=== PATIENT | female | born 1995 | race Caucasian/White ===

== ENCOUNTER 2022-03-09 07:54 | Inpatient (IN) ==
[2022-03-09] MEDS ORDERED: Promethazine INJ(RESTRICTED) 25 MG/ML 1 ml VIAL IV PRN (09:53)
[2022-03-09] MEDS ORDERED: Nalbuphine 10 MG/ML 1 ML VIAL IV PRN (09:53)
[2022-03-09] MEDS ORDERED: Buffered Lidocaine 1% SYRIN 1 ml INTRADERM ONE ×2 (09:53→09:56)
[2022-03-09] MEDS ORDERED: Lactated Ringers 1000 ml BAG 1,000 ML IV SCH ×2 (10:00→19:00)
[2022-03-09] MEDS ORDERED: Oxytocin in LR 20,000 MILLI.UNIT/1,000 ML BAG IV SCH (10:00)
[2022-03-09 10:26] LABS: ABS Basophils 0.1 10^3/ul (0-0.2); ABS Eosinophils 0.2 10^3/ul (0-0.6); ABS Lymphocytes 2.2 10^3/ul (1.0-4.8); ABS Monocytes 0.6 10^3/ul (0-0.8); ABS Neutrophils 6.2 10^3/ul (1.5-7.7); Hematocrit 33 % (35-47); Hemoglobin 10.6 g/dL (12.0-16.0); Lymphocyte % 23.6 %; Mean Corpuscular HGB Conc 33 g/dL (31-36); Mean Corpuscular Hemoglobin 29 pg (27-31); Mean Corpuscular Volume 89 fL (80-97); Mean Platelet Volume 10.8 fL (7.4-10.4); Nucleated Red Blood Cells % 0.1; Platelet Count 203 10^3/uL (150-450); Red Blood Count 3.67 10^6 /uL (3.70-4.87); Red Cell Distribution Width 14 % (10-15); White Blood Count 9.2 10^3/uL (3.5-10.8)
[2022-03-09 10:51] LABS: Urine Benzodiazepine Screen None Detected (None Detect); Urine Cannabinoids Screen None Detected (None Detect); Urine Opiates Screen None Detected (None Detect)
[2022-03-09 12:05] LABS: HIV 4th Generation Nonreactive (Nonreactive)
[2022-03-09] MEDS ORDERED: OBEPIDURAL (200 ML) 200 ML EPIDURAL ONE (17:45)
[2022-03-09] MEDS ORDERED: Bupivacaine 0.25% SDV PF 10 ML VIAL INJ ONE (17:51)
[2022-03-09] MEDS ORDERED: fentaNYL 100 mcg/2 ml 50 MCG/ML VIAL ONE (17:51)
[2022-03-09] MEDS: Lactated Ringers 1000 ml BAG 1,000 ML IV ONE ×2 (18:15→19:09)
[2022-03-09] MEDS ORDERED: Lactated Ringers 1000 ml BAG 1,000 ML IV ONE (18:47)
[2022-03-09] MEDS ORDERED: Phenylephrine 40 mcg/mL 10mL (400mcg) SYRINGE IV PUSH PRN ×2 (18:47)
[2022-03-09] MEDS ORDERED: Lactated Ringers 1000 ml BAG 500 ML IV PRN ×2 (18:47)
[2022-03-09] MEDS ORDERED: Sodium Citrate/Citric Acid LIQ 15 ML UDC PO PRN (18:47)
[2022-03-09] MEDS ORDERED: OBEPIDURAL (200 ML) 200 ML EPIDURAL SCH (19:00)
[2022-03-09 19:31] LABS: Urine Appearance Clear; Urine Bilirubin Negative (Negative); Urine Blood Negative (Negative); Urine Color Yellow; Urine Glucose Negative (Negative); Urine Ketones Negative (Negative); Urine Nitrite Negative (Negative); Urine Protein 1+(30 mg/dL) (Negative); Urine Specific Gravity 1.024 (1.002-1.030); Urine Urobilinogen Negative (Negative)
[2022-03-09 20:02] LABS: Urine Bacteria Absent (Absent); Urine Red Blood Cell Absent (Absent); Urine White Blood Cell Absent (Absent)
[2022-03-10] MEDS ORDERED: Witch Hazel PAD JAR TOPICAL PRN (00:20)
[2022-03-10] MEDS ORDERED: Dibucaine 1% OINT 28.35 GM TUBE PR PRN (00:20)
[2022-03-10] MEDS ORDERED: Glycerin ADULT 2.4 gm SUPP PR PRN (00:20)
[2022-03-10] MEDS ORDERED: Ondansetron 4 mg VIAL 2 MG/ML 2 ml VIAL IV ONE (00:21)
[2022-03-10] MEDS ORDERED: ceFOXitin 2 GM IVPREMIX 2 GM/50 ML BAG IVPB ONE (00:25)
[2022-03-10] MEDS ORDERED: Oxytocin in LR 20,000 MILLI.UNIT/1,000 ML BAG IV SCH (00:30)
[2022-03-10] MEDS ORDERED: ceFOXitin 1 GM in NS 0.9% 50 ML BAG IVPB ONE (01:00)
[2022-03-10] MEDS ORDERED: Lactated Ringers 1000 ml BAG 1,000 ML IV SCH (01:00)
[2022-03-10] MEDS ORDERED: Lidocaine 1% VIAL 10 MG/ML VIAL 30 ML ONE (04:25)
[2022-03-11 06:55] LABS: ABS Eosinophils 0.2 10^3/ul (0-0.6); ABS Lymphocytes 3.3 10^3/ul (1.0-4.8); ABS Monocytes 0.8 10^3/ul (0-0.8); ABS Neutrophils 6.8 10^3/ul (1.5-7.7); Hematocrit 25 % (35-47); Hemoglobin 8.3 g/dL (12.0-16.0); Lymphocyte % 29.5 %; Mean Corpuscular HGB Conc 33 g/dL (31-36); Mean Corpuscular Hemoglobin 29 pg (27-31); Mean Corpuscular Volume 89 fL (80-97); Mean Platelet Volume 10.3 fL (7.4-10.4); Platelet Count 196 10^3/uL (150-450); Red Blood Count 2.85 10^6 /uL (3.70-4.87); Red Cell Distribution Width 14 % (10-15); White Blood Count 11.2 10^3/uL (3.5-10.8)
[2022-03-11 08:17] VITALS: BP 137/85
== END 2022-03-11 11:48 | disposition home or self-care (01) | DRG 807 ==
LOC: MCHOBOUT 07:54 → MCHOB 09:48
PROVIDERS: ADMIT Obstetrics & Gynecology; ATTEND Obstetrics & Gynecology